=== PATIENT | male | born 1935 | race Caucasian/White ===

== ENCOUNTER → 2016-08-26 | Outpatient (CLI) | payer BC ==
--- NOTE | 2016-08-26 09:54 | DIAGNOSTIC IMAGING REPORT ---
MRI OF THE LUMBAR SPINE WITHOUT IV CONTRAST CLINICAL HISTORY: Chronic low back pain and left lower extremity radiculopathy. History of previous back surgery. COMPARISON STUDY: No priors. TECHNIQUE: MRI of lumbar spine is performed utilizing various T1 and T2-weighted sequences in the axial and sagittal planes. IV contrast was not administered for this examination. The examination is degraded by susceptibility artifact from extensive lumbar spinal fusion hardware. FINDINGS: Lumbar spine: Vertebral body height is maintained throughout the lumbar spine. There is minimal retrolisthesis at L2-L3 and minimal anterolisthesis at L4-L5. Alignment is otherwise preserved. There is straightening of the lumbar lordosis. There are postoperative changes from laminectomy and posterior fusion with interposition bone graft seen from L3 to S1. Interpedicular screws are present at all levels. The orthopedic hardware is grossly intact but not well assessed. The transverse processes are intact as visualized. No destructive bony lesion is suggested. Chronic degenerative endplate change with mild endplate edema is seen at L1-L2. Small anterior osteophytes are noted throughout. Intervertebral discs: There is degenerative disc desiccation and loss of height throughout the lumbar spine. Discectomy changes are questioned at the operative levels. Spinal cord: The visualized spinal cord is normal in morphology and signal intensity. The conus medullaris terminates at the T12-L1 interspace. The nerve roots of the cauda equina are normal in morphology. These are likely tethered at the L2-L3 level. L1-L2: There is a large posterior disc bulge eccentric to the left. In conjunction with hypertrophy of the ligamentum flavum this causes [id number] central canal stenosis with a minimum AP diameter of 8 mm. There is severe left-sided subarticular stenosis, with probable impingement on the exiting left L1 nerve root. Facet arthropathy causes mild left neural foraminal stenosis. The right neural foramen is patent. L2-L3: There is broad-based posterior disc bulge eccentric to the left. In conjunction with hypertrophy of the ligamentum flavum there is moderate central canal stenosis at this level with a minimum AP diameter of 5.5 mm. There is bilateral subarticular stenosis, left greater than right. There may be impingement on the exiting bilateral L2 nerve roots. L3-L4: The central canal and neural foramina are grossly patent. L4-L5: The central canal and neural foramina are grossly patent. L5-S1: The central canal and neural foramina are grossly patent. Sacrum: Visualized sacrum is normal in morphology and signal intensity. Soft tissues: There is fatty atrophy of the paraspinous musculature. Postoperative change is seen posteriorly from L3 to S1. There is a similar-appearing fluid collection seen posterior to the thecal sac at the operative level which measures approximately 5 x 0.5 x 1 cm. A left kidney is not identified. The right kidney demonstrates cortical atrophy. IMPRESSION: 1. No destructive bony process is identified. 2. There are postoperative changes from laminectomy and posterior fusion from L3 to S1. 3. There are disc bulges contributing to central canal stenosis at L1-L2 and L2-L3 as above. See discussion for detailed level by level analysis. 4. Normal left kidney is not identified. This may be surgically absent. Correlation with the surgical history will be required. Dictated: 08/26/2016 8:12 AM Transcribed: 08/26/2016 9:53 AM [facility] Electronically signed by: Italo Walsh M.D. 08/26/2016 9:56 AM Dictated Date/Time: 08/26/2016 8:12 AM
== END | disposition home or self-care (01) ==
LOC: C.MRI 07:05
PROVIDERS: ATTEND Family Medicine
DX: M54.17 Radiculopathy, lumbosacral region (principal)

== ENCOUNTER → 2016-10-20 | Outpatient (CLI) | payer BC ==
[2016-10-20 13:47] LABS: ESTIMATED AVERAGE GLUCOSE 217 mg/dl; HA1C FLAG Normal (Normal)
[2016-10-20 14:08] LABS: BLOOD UREA NITROGEN 15 mg/dl (7-18); BUN/CREATININE RATIO 12.1 (10-20); CARBON DIOXIDE 29 mmol/L (21-32); CHLORIDE 104 mmol/L (98-107); GLUCOSE 215 mg/dl (70-99); PHOSPHORUS 2.3 mg/dl (2.5-4.9); POTASSIUM 4.1 mmol/L (3.5-5.1); SODIUM 139 mmol/L (136-145)
== END | disposition home or self-care (01) ==
LOC: C.LABMFLN 08:43
PROVIDERS: ATTEND Family Medicine
DX: E11.9 Type 2 diabetes mellitus without complications (principal)

== ENCOUNTER → 2017-05-19 | Outpatient (CLI) | payer BC ==
[2017-05-19 17:49] LABS: BASO % 0.6 %; BASO ABS # 0.05 K/uL (0-0.2); EOS % 2.7 %; EOS ABS # 0.22 K/uL (0-0.5); HEMATOCRIT 46.4 % (42-52); HEMOGLOBIN 15.5 g/dL (14.0-18.0); IG# 0.03 K/uL (0.00-0.02); LYMPH % 19.9 %; LYMPH ABS # 1.61 K/uL (1.2-3.4); MEAN CELL VOLUME 86.4 fL (80-100); MEAN CORPUSCULAR HEMOGLOBIN 28.9 pg (25-34); MEAN CORPUSCULAR HGB CONC 33.4 g/dl (32-36); MEAN PLATELET VOLUME 10.7 fL (7.4-10.4); MONO % 5.9 %; MONO ABS # 0.48 K/uL (0.11-0.59); NEUT % 70.5 %; PLATELET COUNT 244 K/uL (130-400); RED CELL DISTRIBUTION WIDTH CV 15.3 % (11.5-14.5); RED CELL DISTRIBUTION WIDTH SD 48.4 fL (36.4-46.3); WHITE BLOOD COUNT 8.09 K/uL (4.8-10.8)
[2017-05-19 18:29] LABS: BLOOD UREA NITROGEN 19 mg/dl (7-18); CALCIUM 8.9 mg/dl (8.5-10.1); CARBON DIOXIDE 26 mmol/L (21-32); CREATININE 1.19 mg/dl (0.60-1.40); GLUCOSE 130 mg/dl (70-99); POTASSIUM 3.9 mmol/L (3.5-5.1); SODIUM 139 mmol/L (136-145)
[2017-05-19 18:40] LABS: CHOLESTEROL 149 mg/dl (0-200); LDL CHOLESTEROL CALCULATED 79 mg/dl; PHOSPHORUS 2.6 mg/dl (2.5-4.9)
[2017-05-19 18:48] LABS: CREATININE RANDOM URINE 58.1 mg/dl
[2017-05-20 06:11] LABS: HEMOGLOBIN A1C 6.8 % (4.5-5.6)
== END | disposition home or self-care (01) ==
LOC: C.LABMFLN 10:47
PROVIDERS: ATTEND Family Medicine
DX: E11.9 Type 2 diabetes mellitus without complications (principal); E78.00 Pure hypercholesterolemia, unspecified

== ENCOUNTER → 2017-08-24 | Outpatient (CLI) | payer BC ==
[2017-08-24 18:12] LABS: ALBUMIN 4.4 gm/dl (3.4-5.0); BLOOD UREA NITROGEN 28 mg/dl (7-18); CALCIUM 9.1 mg/dl (8.5-10.1); CARBON DIOXIDE 29 mmol/L (21-32); CREATININE 1.32 mg/dl (0.60-1.40); GLUCOSE 92 mg/dl (70-99); PHOSPHORUS 2.9 mg/dl (2.5-4.9); POTASSIUM 4.3 mmol/L (3.5-5.1); SODIUM 139 mmol/L (136-145)
[2017-08-25 05:58] LABS: HEMOGLOBIN A1C 7.1 % (4.5-5.6)
== END | disposition home or self-care (01) ==
LOC: C.LABMFLN 13:47
PROVIDERS: ATTEND Family Medicine
DX: E11.22 Type 2 diabetes mellitus with diabetic chronic kidney disease (principal); N18.3 Chronic kidney disease, stage 3 (moderate)